=== PATIENT | female | born 1960 | race Caucasian/White ===

== ENCOUNTER → 2017-01-15 | Outpatient (CLI) | payer MEDICARE ==
[~2017-01-15] MED LIST: ACET500T68 PO; ASPI-482 PO; CELE200C PO; CYCL10TA2 PO; HYDR-2762 PO; IBUP-1027 PO; NORT10CA PO; PREG50CA PO; RANI150T6 PO; TIZA4TAB PO; TRAM50TA PO
--- NOTE | 2017-01-15 10:34 | RAD ---
Exam performed: Complete abdominal ultrasound. History: Elevated liver function test. Date of service: 01/15/17. Comparison: None available Technique: Real-time grayscale imaging of the complete abdomen is performed and images are obtained. Findings: Hepatomegaly with diffuse hepatic steatosis. The liver measures 19.6 cm in length. There is no intra or extrahepatic biliary ductal dilatation. Common bile duct measures 4.6 mm. Gallbladder is normal. Bilateral kidneys, spleen and pancreas are normal. Right kidney measures 13.4 x 5.3 x 5.2 cm the left kidney measures 14.0 x 3.4 x 5.5 cm. The visualized IVC and aorta appear normal. No free fluid. Impression: Hepatomegaly with diffuse hepatic steatosis.
== END | disposition home or self-care (01) ==
LOC: US 08:58
PROVIDERS: ATTEND Internal Medicine Gastroenterology
DX: R79.89 Other specified abnormal findings of blood chemistry (principal); K76.0 Fatty (change of) liver, not elsewhere classified; R16.0 Hepatomegaly, not elsewhere classified
CPT/HCPCS: 76700